=== PATIENT | female | born 1990 | race African-American/Black ===

== ENCOUNTER 2016-11-12 18:32 | Emergency (ER) | payer SELFPAY ==
[~2016-11-12] VITALS: Ht 160 cm; Wt 59.0 kg
[2016-11-12 18:34] VITALS: BP 125/84
--- NOTE | 2016-11-12 18:39 | NUR ---
PATIENT PRESENTS TO ED WITH RIGHT SIDE OF UPPER RIB PAIN . PT STATES NO TRAUMA, NO SPORTS . DENIES N/V/D; SKIN IS PINK/WARM/DRY; AAOX4 WITH EVEN AND STEADY GAIT; LUNGS CLEAR BL; HR EVEN AND REGULAR; PT DENIES ANY FEVER, CP, SOB, OR COUGH AT THIS TIME; PATIENT STATES PAIN OF 5/10 AT THIS TIME; VSS; PATIENT POSITIONED FOR COMFORT; HOB ELEVATED; BEDRAILS UP X2; BED DOWN. ER MD MADE AWARE OF PT STATUS.
--- NOTE | 2016-11-12 18:54 | NUR ---
Patient to bed 07.
--- NOTE | 2016-11-12 19:08 | NUR ---
PT LEFT FOR X RAY VIA WHEELCHAIR PER TECH ACCOMPANIED BY [employer] DIRECTOR [employer] OFFICER.
--- NOTE | 2016-11-12 19:09 | NUR ---
Kevin medeiros in [facility] - 11/12/16 at 1915 by PHANI PT TAKEN TO [facility]
--- NOTE | 2016-11-12 19:18 | NUR ---
REPORT GIVEN TO FERNANDO PALOMINO.
--- NOTE | 2016-11-12 19:20 | NUR ---
RECEIVED REPORT FROM DAY NURSE GEORGETTE FERNANDEZ FOR TRANSFER OF CARE.
--- NOTE | 2016-11-12 19:28 | NUR ---
Dr. Masterson evaluating patient at bedside.
--- NOTE | 2016-11-12 19:41 | NUR ---
PATIENT BIB [place] [employer]. PATIENT EXAMINED BY DR. WATKINS. PATIENT MEDICALLY CLEARED AND RELEASED IN CUSTODY IN STABLE CONDITION. ORIGINAL PRE-BOOK FORM GIVEN TO OFFICER RAJNI #[id number].
[2016-11-12 19:42] VITALS: BP 122/78
== END 2016-11-12 19:41 ==
LOC: MED 18:32
DX: S20.20XA Contusion of thorax, unspecified, initial encounter (principal); N39.0 Urinary tract infection, site not specified; Z88.8 Allergy status to other drugs, medicaments and biological substances; X58.XXXA Exposure to other specified factors, initial encounter; Y93.89 Activity, other specified; Y92.89 Other specified places as the place of occurrence of the external cause; Y99.8 Other external cause status
CPT/HCPCS: 71101; 81002; 81025; 99284